=== PATIENT | male | born 1970 | race African-American/Black ===

== ENCOUNTER 2016-11-14 12:25 | Inpatient (IN) | payer MEDICAID ==
[~2016-11-14] VITALS: Ht 175.3 cm; Wt 87.5 kg
[2016-11-14] MEDS ORDERED: CARV3.122 PO (12:48)
[2016-11-14] MEDS ORDERED: FURO40TA5 PO (12:48)
[2016-11-14] MEDS ORDERED: GLIP5TAB13 PO (12:49)
[2016-11-14] MEDS ORDERED: HYDR-4075 PO (12:56)
[2016-11-14] MEDS ORDERED: ASPI-612 PO (12:56)
[2016-11-14] MEDS ORDERED: LOSA25TA13 PO (12:56)
[2016-11-14] MEDS ORDERED: INSU100I19 SQ (12:56)
[2016-11-14] MEDS ORDERED: SIMV20TA6 PO (12:56)
[2016-11-14 13:00] VITALS: BP 128/95
[2016-11-14] MEDS ORDERED: INSULIN REGULAR, HUMAN 300 UNITS/3 ML VIAL SQ PRN (14:45)
[2016-11-14] MEDS ORDERED: DEXTROSE 50% 50 ML DISP.SYRIN IV PRN (14:45)
[2016-11-14] MEDS ORDERED: INSULIN REGULAR, HUMAN 300 UNIT/3 ML VIAL SQ PRN (14:45)
[2016-11-14] MEDS: CARVEDILOL 3.125 MG TABLET PO SCH (17:12)
[2016-11-14] MEDS: BLOOD SUGAR DIAGNOSTIC 1 EACH STRIP VI SCH ×2 (17:43→23:12)
--- NOTE | 2016-11-14 19:45 | NUR ---
Received patient resting on his bed with no s/s of distress. No complaints of pain at this time. Call light within reach, encouraged to call for assistance for any need. Assured of frequent visits from RN throughout the shift. Will continue to monitor.
[2016-11-14] MEDS: SIMVASTATIN 20 MG TABLET PO SCH (21:32)
[2016-11-14] MEDS ORDERED: INSULIN DETEMIR 300 UNIT/3 ML CARTRIDGE SQ ONE (22:28)
[2016-11-14] MEDS: INSULIN DETEMIR 300 UNIT/3 ML CARTRIDGE SQ SCH (23:12)
--- NOTE | 2016-11-15 07:31 | NUR ---
Patient still asleep. No s/s of distress. No complaints of pain. Kept comfortable, needs attended. BS monitored, due meds given. Call light kept within reach. Frequent checks done to ensure safety. Health educ done. Endorsed accordingly.
[2016-11-15] MEDS: BLOOD SUGAR DIAGNOSTIC 1 EACH STRIP VI SCH ×4 (07:58→20:55)
[2016-11-15] MEDS: glipiZIDE 5 MG TABLET PO SCH (08:00)
--- NOTE | 2016-11-15 08:40 | NUR ---
RECEIVED REPORT FROM BRUSH FABRICATION SUPERVISOR. NO SIGNS OF DISTRESS. NO COMPLAINTS OF PAIN. CALL LIGHT WITHIN REACH. NEEDS ATTENDED TO. FREQUENT CHECKS DONE.
[2016-11-15] MEDS: ASPIRIN 325 MG TABLET PO SCH (08:55)
[2016-11-15] MEDS: CARVEDILOL 3.125 MG TABLET PO SCH ×2 (08:55→16:21)
[2016-11-15] MEDS: FUROSEMIDE 40 MG TABLET PO SCH (08:57)
[2016-11-15] MEDS: LOSARTAN POTASSIUM 25 MG TABLET PO SCH (08:57)
[2016-11-15 12:16] VITALS: BP 153/106
[2016-11-15] MEDS ORDERED: DEXTROSE 50% 50 ML DISP.SYRIN IV PRN (14:00)
[2016-11-15 15:35] LABS: EOSINOPHILS # (AUTO) 0.1 K/uL (0.0-0.7); EOSINOPHILS % (AUTO) 1.5 % (0.0-7.0); HEMATOCRIT 40.5 % (36.7-47.1); HEMOGLOBIN 13.2 g/dL (12.5-16.3); LYMPHOCYTES # (AUTO) 1.5 K/uL (20.0-40.0); LYMPHOCYTES % (AUTO) 18.5 % (20.5-51.5); MEAN CORPUSCULAR HEMOGLOBIN 30.8 uug (23.8-33.4); MEAN CORPUSCULAR HGB CONC 33 g/dL (32.5-36.3); MEAN CORPUSCULAR VOLUME 94.2 fL (73.0-96.2); MONOCYTES # (AUTO) 0.7 K/uL (2.0-10.0); MONOCYTES % (AUTO) 9.3 % (0.0-11.0); NEUTROPHILS # (AUTO) 5.6 K/uL (1.8-8.9); NEUTROPHILS % (AUTO) 70.7 % (38.5-71.5); PLATELET COUNT (AUTO) 124 K/uL (152-348); RED CELL DISTRIBUTION WIDTH 14.2 % (12.1-16.2); WHITE BLOOD COUNT (AUTO) 7.9 K/uL (3.6-10.2)
[2016-11-15 16:00] VITALS: BP 159/110
--- NOTE | 2016-11-15 17:30 | NUR ---
PATIENT AWAKE. NO S/S OF DISTRESS. NO COMPLAINTS OF PAIN OR OTHER DISCOMFORTS. ACCU CHECK DONE, READ 192, HUMULIN R 40 UNITS GIVEN. BP OF 163/11. PRN MEDS GIVEN. NO OTHER UNTOWARD S/S OR COMPLAINTS NOTED. ENSURED SAFETY. NEEDS ATTENDED TO
[2016-11-15] MEDS: INSULIN REGULAR, HUMAN 300 UNIT/3 ML VIAL SQ PRN ×2 (17:50→21:08)
[2016-11-15] MEDS: hydrALAZINE HCL 10 MG TABLET PO PRN (18:05)
--- NOTE | 2016-11-15 19:42 | NUR ---
BP OF 155/105. PATIENT AWAKE AND ORIENTED. REPORT GIVEN TO SUBSCRIPTION AGENT
[2016-11-15] MEDS: SIMVASTATIN 20 MG TABLET PO SCH (20:52)
[2016-11-15] MEDS: INSULIN DETEMIR 300 UNIT/3 ML CARTRIDGE SQ SCH (21:02)
--- NOTE | 2016-11-16 06:00 | NUR ---
Patient alert and oriented, verbally able to let needs known. Had no c/o pain or discomfort throughout the night, slept well all night. Is ambulatory and has BRP. Patient does have call light within reach. All needs attended, will continue to monitor.
[2016-11-16 06:43] LABS: ALBUMIN 2.8 g/dL (3.4-5.0); BILIRUBIN,TOTAL 1.3 mg/dL (0.2-1.0); CALCIUM 8.5 mg/dL (8.5-10.1); POTASSIUM 3.3 mmol/L (3.5-5.1); TOTAL PROTEIN, SERUM 6.6 g/dL (6.4-8.2)
[2016-11-16] MEDS: BLOOD SUGAR DIAGNOSTIC 1 EACH STRIP VI SCH ×4 (06:58→21:14)
--- NOTE | 2016-11-16 07:00 | NUR ---
Received critical lab levels for patient BS 44. Dr Saxena was notified regarding situation and he advised us to call Dr Serrato. Dr Serrato was called and verbalized that he's been off for the past several days and to notify the appropriate MD. BS has been rechecked with BS level 37 at 0706, and BS levels 53 at 727. Alcorn juice provided, patient alert and oriented and verbally able to let needs known, currently sitting up in chair and verbalizes no discomfort or dizziness. Will continue to monitor. Reported to oncoming nurse.
--- NOTE | 2016-11-16 07:30 | NUR ---
Patient received from overnight babysitter, sitting comfortably in chair next to bed. No signs of acute distress noted. VS WNL on RA, no complaints of pain noted. No other verbalized needs at this time. Morning blood sugar check by night nurse 38, lab reported blood sugar of 44. No signs of hypoglycemia noted, AAOx4. Dewey juice with added sugar given. Will recheck sugar. Safety and fall precautions maintained, call light within reach.
--- NOTE | 2016-11-16 07:36 | NUR ---
BS rechecked with results reading 90, oncoming nurse informed
[2016-11-16 08:00] VITALS: BP 130/94
[2016-11-16] MEDS: ASPIRIN 325 MG TABLET PO SCH (08:32)
[2016-11-16] MEDS: CARVEDILOL 3.125 MG TABLET PO SCH ×2 (08:33→17:03)
[2016-11-16] MEDS: FUROSEMIDE 40 MG TABLET PO SCH (08:34)
[2016-11-16] MEDS: LOSARTAN POTASSIUM 25 MG TABLET PO SCH (08:34)
[2016-11-16] MEDS: glipiZIDE 5 MG TABLET PO SCH (08:57)
--- NOTE | 2016-11-16 10:00 | NUR ---
Blood sugar rechecked, result 146. No signs of distress noted, oral hypoglycemic agent given as per ordered. No other verbalized needs at this time.
[2016-11-16] MEDS ORDERED: POTASSIUM CHLORIDE 20 MEQ TAB.PRT.SR PO ONE (12:00)
[2016-11-16] MEDS: INSULIN REGULAR, HUMAN 300 UNIT/3 ML VIAL SQ PRN (12:03)
[2016-11-16 19:41] VITALS: BP 136/95
[2016-11-16] MEDS: SIMVASTATIN 20 MG TABLET PO SCH (21:13)
[2016-11-16] MEDS: INSULIN DETEMIR 300 UNIT/3 ML CARTRIDGE SQ SCH (21:19)
[2016-11-16] MEDS: INSULIN REGULAR, HUMAN 300 UNITS/3 ML VIAL SQ PRN (21:36)
[2016-11-17 03:35] VITALS: BP 120/83
[2016-11-17] MEDS: glipiZIDE 5 MG TABLET PO SCH (06:39)
[2016-11-17] MEDS: BLOOD SUGAR DIAGNOSTIC 1 EACH STRIP VI SCH ×4 (06:39→21:10)
--- NOTE | 2016-11-17 06:41 | NUR ---
Patient alert and oriented, verbally able to let needs known. Slept well throughout the night. Had no c/o pain or discomfort, no SOB or distress noted. Patient has call light within reach, all needs attended to.
[2016-11-17 07:32] LABS: CALCIUM 8.4 mg/dL (8.5-10.1); POTASSIUM 3.8 mmol/L (3.5-5.1)
[2016-11-17 08:00] VITALS: BP 118/57
[2016-11-17] MEDS: ASPIRIN 325 MG TABLET PO SCH (10:44)
[2016-11-17] MEDS: CARVEDILOL 3.125 MG TABLET PO SCH ×2 (10:48→17:18)
[2016-11-17] MEDS: LOSARTAN POTASSIUM 25 MG TABLET PO SCH (10:49)
[2016-11-17] MEDS: FUROSEMIDE 40 MG TABLET PO SCH (10:49)
--- NOTE | 2016-11-17 14:58 | NUR ---
DAILY NURSING NOTE UP OOB X2 AMBULATING WITH THERAPY MAGDY WELL. B/P THIS AM 148/105. STABLE LAST READING 118/57 THIS AFTERNOON. NO C/O DISTRESS. AFTERNOON BS 78. ENCOURAGE HIM TO EAT SHE SAID HE WOULD.
[2016-11-17] MEDS: INSULIN REGULAR, HUMAN 300 UNIT/3 ML VIAL SQ PRN (18:17)
[2016-11-17] MEDS: SIMVASTATIN 20 MG TABLET PO SCH (21:09)
[2016-11-17] MEDS: INSULIN DETEMIR 300 UNIT/3 ML CARTRIDGE SQ SCH (21:13)
[2016-11-18] MEDS: glipiZIDE 5 MG TABLET PO SCH (06:44)
[2016-11-18] MEDS: BLOOD SUGAR DIAGNOSTIC 1 EACH STRIP VI SCH ×4 (06:44→21:54)
--- NOTE | 2016-11-18 06:51 | NUR ---
Patient slept well through out the night, had no complains of pain or discomfort. Verbally able to let needs known. Call light within reach all needs attended to.
[2016-11-18 07:58] VITALS: BP 125/63
[2016-11-18 08:03] VITALS: BP 125/63
[2016-11-18 08:07] VITALS: BP 143/96
[2016-11-18] MEDS: FUROSEMIDE 40 MG TABLET PO SCH (08:51)
[2016-11-18] MEDS: ASPIRIN 325 MG TABLET PO SCH (08:51)
[2016-11-18] MEDS: LOSARTAN POTASSIUM 25 MG TABLET PO SCH (08:52)
[2016-11-18] MEDS: CARVEDILOL 3.125 MG TABLET PO SCH ×2 (08:53→18:37)
--- NOTE | 2016-11-18 19:20 | NUR ---
nsg: pt received asleep, arousable. no acute distress noted. denies discomfort. bed alarm on. call light within reach.
[2016-11-18 19:45] VITALS: BP 132/62
[2016-11-18] MEDS: SIMVASTATIN 20 MG TABLET PO SCH (21:16)
[2016-11-18] MEDS: INSULIN DETEMIR 300 UNIT/3 ML CARTRIDGE SQ SCH (21:20)
[2016-11-18] MEDS: INSULIN REGULAR, HUMAN 300 UNITS/3 ML VIAL SQ PRN (21:22)
--- NOTE | 2016-11-18 23:50 | NUR ---
nsg: pt up, sitting on the chair. denies discomfort.
--- NOTE | 2016-11-19 04:15 | NUR ---
nsg: while doing hourly rounding, pt is awake, c/o shortness of breathe on exertion, and cough out clear sputum. pt assisted to sit on the chair per request. lungs sounds equally clear bilaterally. O2 sat on RA is sustaining 96%. pt feels better after sitting on the chair. cont to monitor.
--- NOTE | 2016-11-19 06:00 | NUR ---
nsg: pt awake, comfortable in bed. no acute distress noted. denies shortness of breathe. cont to monitor.
[2016-11-19] MEDS: BLOOD SUGAR DIAGNOSTIC 1 EACH STRIP VI SCH ×4 (06:35→21:00)
--- NOTE | 2016-11-19 07:05 | NUR ---
Patient received from material handler 2nd shift, comfortable up in chair, no signs of acute distress noted. No verbalized needs at this time. No complaints of pain. VS WNL, BS 108 per night nurse. Safety precautions and fall precautions maintained. Call light within reach.
[2016-11-19 08:04] VITALS: BP 153/111
[2016-11-19] MEDS: glipiZIDE 5 MG TABLET PO SCH (08:25)
[2016-11-19] MEDS: FUROSEMIDE 40 MG TABLET PO SCH (08:25)
[2016-11-19] MEDS: LOSARTAN POTASSIUM 25 MG TABLET PO SCH (08:25)
[2016-11-19] MEDS: CARVEDILOL 3.125 MG TABLET PO SCH ×2 (08:25→17:21)
[2016-11-19] MEDS: ASPIRIN 325 MG TABLET PO SCH (08:26)
[2016-11-19] MEDS ORDERED: IPRATROPIUM BROMIDE 0.5 MG/2.5 ML NEBU NEB PRN (13:00)
[2016-11-19] MEDS ORDERED: ALBUTEROL SULFATE 2.5 MG/3 ML NEBU NEB PRN (13:00)
[2016-11-19] MEDS ORDERED: GUAIFENESIN/CODEINE 5 ML LIQUID UDC PO PRN (13:00)
[2016-11-19] MEDS: LEVOFLOXACIN 750 MG TABLET PO SCH (13:44)
[2016-11-19] MEDS: hydrALAZINE HCL 10 MG TABLET PO PRN (17:21)
--- NOTE | 2016-11-19 19:45 | NUR ---
Received patient sleeping with no s/s of distress noted. Call light within reach. Will continue to monitor.
[2016-11-19] MEDS: SIMVASTATIN 20 MG TABLET PO SCH (20:27)
[2016-11-19] MEDS: INSULIN DETEMIR 300 UNIT/3 ML CARTRIDGE SQ SCH (21:00)
[2016-11-20] MEDS: INSULIN REGULAR, HUMAN 300 UNITS/3 ML VIAL SQ PRN ×2 (00:13→20:45)
[2016-11-20] MEDS: hydrALAZINE HCL 10 MG TABLET PO PRN (00:18)
--- NOTE | 2016-11-20 00:31 | NUR ---
BP 162/100. Hydralazine given as ordered. Patient verbalized absence of pain and discomfort at this time, saying "I'm good, I don't feel anything out of the ordinary." Midnight snacks offered and served as requested. Blood sugar likewise being monitored. Decreased from 253 to 217 after interventions. Will reasses and continue to monitor.
--- NOTE | 2016-11-20 01:00 | NUR ---
Patient's Blood Sugar level at 65. Gave orange juice and encourage to finish lunch. Informed Dr. Beaulieu Addendum: 11/20/16 at 1925 by BRET WHITFIELD RN Documentation for 12:45. Patient's Blood Sugar level at 65. Gave orange juice and encourage to finish lunch. Informed Dr. Beaulieu
[2016-11-20 05:53] VITALS: BP 156/100
--- NOTE | 2016-11-20 06:43 | NUR ---
Patient resting on his chair with no s/s of distress. No complaints of pain at this time. BP and blood sugar monitored during shift. Latest BS taken at 5:45AM-98. Health education given. Verbalized understanding and overall feeling of being wellness. Stated, "I'm fine, I'm feeling good." Desirable decrease in SBP noted after medical intervention and ample amount of sleep. Patient verbalized feeling rested upon waking up. Snacks offered while waiting for breakfast; refused, saying he could wait and preferred to go back to bed. Needs attended. Frequent checks done. Supervised during bathroom trips. Call light kept within reach. Endorsed accordingly.
--- NOTE | 2016-11-20 08:00 | NUR ---
Received patient asleep in bed with no signs of distress. Call light within reach. Will continue to monitor
[2016-11-20 08:12] LABS: CALCIUM 8.6 mg/dL (8.5-10.1); CARBON DIOXIDE 31 mmol/L (21-32); CHLORIDE 103 mmol/L (98-107); CREATININE 0.7 mg/dL (0.6-1.3); GFR > 130 mL/min (>60); GLUCOSE 91 mg/dL (74-106); POTASSIUM 3.7 mmol/L (3.5-5.1); SODIUM SERUM 141 mmol/L (136-145); UREA NITROGEN, BLOOD 10 mg/dL (7-18)
[2016-11-20] MEDS: BLOOD SUGAR DIAGNOSTIC 1 EACH STRIP VI SCH ×4 (08:12→20:46)
[2016-11-20 08:24] LABS: BASOPHILS % (AUTO) 0.7 % (0.0-2.0); EOSINOPHILS # (AUTO) 0.1 K/uL (0.0-0.7); EOSINOPHILS % (AUTO) 1.7 % (0.0-7.0); MEAN CORPUSCULAR HEMOGLOBIN 32.1 uug (23.8-33.4); MEAN CORPUSCULAR HGB CONC 34 g/dL (32.5-36.3); MEAN CORPUSCULAR VOLUME 93.8 fL (73.0-96.2); MONOCYTES # (AUTO) 0.7 K/uL (2.0-10.0); MONOCYTES % (AUTO) 10.4 % (0.0-11.0); NEUTROPHILS % (AUTO) 58.2 % (38.5-71.5); PLATELET COUNT (AUTO) 110 K/uL (152-348); RED BLOOD CELL COUNT(AUTO) 4.05 MIL/uL (4.06-5.63); RED CELL DISTRIBUTION WIDTH 14.5 % (12.1-16.2); WHITE BLOOD COUNT (AUTO) 6.8 K/uL (3.6-10.2)
[2016-11-20] MEDS: ASPIRIN 325 MG TABLET PO SCH (08:25)
[2016-11-20] MEDS: glipiZIDE 5 MG TABLET PO SCH (08:25)
[2016-11-20] MEDS: FUROSEMIDE 40 MG TABLET PO SCH (08:31)
[2016-11-20] MEDS: CARVEDILOL 3.125 MG TABLET PO SCH ×2 (08:31→17:35)
[2016-11-20] MEDS ORDERED: LOSARTAN POTASSIUM 50 MG TABLET PO SCH (09:00)
[2016-11-20] MEDS ORDERED: LOSARTAN POTASSIUM 25 MG TABLET PO SCH (09:00)
--- NOTE | 2016-11-20 10:00 | NUR ---
Patient awake, alert and oriented. No complaints of pain or discomfort at this time. Blood pressure, vital signs and blood sugar monitored. Medications given.
[2016-11-20] MEDS: LEVOFLOXACIN 750 MG TABLET PO SCH (12:47)
--- NOTE | 2016-11-20 13:10 | NUR ---
Blood sugar level re-checked at 119. BP monitored and KS at 117. Informed Dr. Madrigal about changes in Pulse Rate. New orders acknowledged and relayed to third shift lieutenant.
--- NOTE | 2016-11-20 15:12 | NUR ---
BP of 149/113. Notified Dr. Beaulieu of BP. New order of Losartan dose noted and acknowledged.
[2016-11-20] MEDS ORDERED: LEVALBUTEROL HCL 1.25 MG/0.5 ML NEB NEB PRN (19:15)
--- NOTE | 2016-11-20 19:30 | NUR ---
Received patient awake, lying in bed. Verbalized absence of pain at this time. Call light within reach. Encouraged to call for assistance whenever necessary. Assured of constant checks/monitoring during the shift.
[2016-11-20] MEDS: SIMVASTATIN 20 MG TABLET PO SCH (20:46)
[2016-11-20] MEDS: INSULIN DETEMIR 300 UNIT/3 ML CARTRIDGE SQ SCH (21:26)
--- NOTE | 2016-11-20 21:45 | NUR ---
Stat EKG ordered by Dr. Beaulieu to obtain possible cause of increased HR. Latest VS taken 143/100. Dr. Beaulieu made aware. Addendum: 11/20/16 at 2259 by ART SOUZA RN Latest VS taken 143/100, HR 115. Dr. Beaulieu made aware. Stat EKG ordered by Dr. Beaulieu to obtain possible cause of increased HR.
[2016-11-20] MEDS ORDERED: METOPROLOL TARTRATE 50 MG TABLET PO ONE (22:30)
--- NOTE | 2016-11-20 22:30 | NUR ---
EKG results in, Dr. Beaulieu made aware. Latest HR 110 bpm. New orders given for Metoprolol 50mg PO now (administered) and Metoprolol 25mg BID. Pennie likewise made aware. Expressed appreciation for the information/update. Patient verbalizes overall feeling of comfort, denies any pain at this time. Will continue to monitor patient.
[2016-11-20 23:57] VITALS: BP 136/100
--- NOTE | 2016-11-21 06:40 | NUR ---
Patient still sleeping with no s/s of distress. Due meds given, V/S and blood sugar monitored during shift. Frequent checks done. Supervised during ambulation. Snacks given twice during shift, per patient's request. Call light kept within reach. Comfort and safety measures observed. Needs attended. Endorsed accordingly.
--- NOTE | 2016-11-21 07:38 | NUR ---
Received patient up in bed watching TV, alert, verbally responsive, coherent, not in acute distress. Denies any pain or discomfort. No noted coughing. Assisted to his needs. Call light placed within reach.
[2016-11-21] MEDS: BLOOD SUGAR DIAGNOSTIC 1 EACH STRIP VI SCH ×4 (08:15→21:32)
[2016-11-21] MEDS: INSULIN REGULAR, HUMAN 300 UNIT/3 ML VIAL SQ PRN ×2 (08:15→12:41)
[2016-11-21] MEDS: glipiZIDE 5 MG TABLET PO SCH (08:16)
[2016-11-21] MEDS: ASPIRIN 325 MG TABLET PO SCH (08:16)
[2016-11-21] MEDS: FUROSEMIDE 40 MG TABLET PO SCH (08:17)
[2016-11-21] MEDS: CARVEDILOL 3.125 MG TABLET PO SCH (08:17)
[2016-11-21] MEDS: LOSARTAN POTASSIUM 50 MG TABLET PO SCH (08:18)
[2016-11-21] MEDS ORDERED: METOPROLOL TARTRATE 25 MG TABLET PO SCH (09:00)
[2016-11-21] MEDS ORDERED: CARVEDILOL 3.125 MG TABLET PO ONE (09:45)
[2016-11-21] MEDS: LEVOFLOXACIN 750 MG TABLET PO SCH (12:47)
[2016-11-21 14:30] VITALS: BP 134/94
--- NOTE | 2016-11-21 14:30 | NUR ---
1100 Notified Eboni PROGRAM PROPOSALS COORDINATOR for Dr. Serrato regarding ECG result from last night and stated will order cardiology consult and said that its ok to go for therapy if vitals signs are stable. Patient and [id number] who is at bedside made aware and agreeable.
[2016-11-21] MEDS: CLOTRIMAZOLE/BETAMET DIPROP CREAM 15 GM TUBE TOP SCH ×2 (16:08→21:02)
--- NOTE | 2016-11-21 16:30 | NUR ---
Patient seen and examined by Eboni HIGH PRESSURE BOILER OPERATOR for Dr. Serrato and noted patient with rash on BLE with order to do skin scraping for scabies. And to put patient on isolation pending result. Patient denies any itching or other discomfort and that he just noticed it today. No complain of pain. Informed patient regarding isolation protocol and he verbalized understanding.
[2016-11-21] MEDS: CARVEDILOL 6.25 MG TABLET PO SCH (17:49)
[2016-11-21 18:00] VITALS: BP 138/104
--- NOTE | 2016-11-21 18:30 | NUR ---
Patient vomited 1x previously ingested food. Patient alert, coherent and verbally responsive. Vital signs as follows, BP-150/105, IA-90, RR-21, O2 Sat at 98%. Abdomen soft and non-tender with normo active bowel sounds.Last BM today 1x. No other signs and symptoms of distress. No complains of pain or other discomforts. Notified Dr. Serrato with order to give Zofran 4 mg PO q6 PRN.
[2016-11-21] MEDS ORDERED: ONDANSETRON HCL 4 MG TABLET PO PRN (18:45)
[2016-11-21 19:28] VITALS: BP 143/111
--- NOTE | 2016-11-21 19:30 | NUR ---
Received patient sleeping with no s/s of distress. Call light within reach. Will continue to monitor.
[2016-11-21 20:00] VITALS: BP 120/87
--- NOTE | 2016-11-21 20:05 | NUR ---
0 Patient remains alert, verbally responsive, coherent, not in acute distress. He denies any pain or discomfort at this time.
[2016-11-21] MEDS: SIMVASTATIN 20 MG TABLET PO SCH (21:02)
[2016-11-21] MEDS: INSULIN DETEMIR 300 UNIT/3 ML CARTRIDGE SQ SCH (21:12)
[2016-11-21] MEDS: INSULIN REGULAR, HUMAN 300 UNITS/3 ML VIAL SQ PRN (21:13)
--- NOTE | 2016-11-21 22:31 | NUR ---
2000: V/S taken 120/87, 85, 98F, 18, 96%. Will continue to monitor 2030: BS 250. Humulin R dose given per sliding scale Assessed for the ff s/s of stroke, all NEGATIVE: facial drooping, arm weakness, speech difficulty, chest pain, numbness, sweating, blurry vision, dizziness, walking imbalance. Encouraged to call for assistance for any need. Assured of frequent checks throughout shift. Verbalized feeling good, and not feeling "anything out of the ordinary".
--- NOTE | 2016-11-21 22:39 | NUR ---
Requested for snacks at 1900, consumed 100%. Denies any feeling of nausea or another episode of vomiting. Reports feeling good. Requested to be brought some snacks at midnight.
--- NOTE | 2016-11-22 06:37 | NUR ---
Patient sleeping with no s/s of distress. No complaints of pain throughout the shift. Verbalized feeling great. Consumed snacks. Kept comfortable. Frequent checks done. Call light kept within reach. VS and blood sugar monitored. Due meds given. Needs attended. Supervised during ambulation. Endorsed accordingly.
[2016-11-22 08:11] VITALS: BP 132/105
[2016-11-22] MEDS ORDERED: APIXABAN 5 MG TABLET PO SCH (09:00)
[2016-11-22] MEDS: LOSARTAN POTASSIUM 50 MG TABLET PO SCH (09:21)
[2016-11-22] MEDS: FUROSEMIDE 40 MG TABLET PO SCH (09:21)
[2016-11-22] MEDS: CARVEDILOL 6.25 MG TABLET PO SCH ×2 (09:22→17:57)
[2016-11-22] MEDS: glipiZIDE 5 MG TABLET PO SCH (09:22)
[2016-11-22] MEDS: BLOOD SUGAR DIAGNOSTIC 1 EACH STRIP VI SCH ×4 (09:23→20:32)
[2016-11-22] MEDS: APIXABAN 5 MG TABLET PO SCH ×2 (09:23→17:53)
[2016-11-22] MEDS: CLOTRIMAZOLE/BETAMET DIPROP CREAM 15 GM TUBE TOP SCH ×2 (09:24→20:36)
[2016-11-22] MEDS: INSULIN REGULAR, HUMAN 300 UNIT/3 ML VIAL SQ PRN ×2 (09:36→12:18)
[2016-11-22] MEDS ORDERED: CARVEDILOL 6.25 MG TABLET PO ONE (10:15)
[2016-11-22] MEDS: AMIODARONE HCL 200 MG TABLET PO SCH ×2 (12:14→20:32)
[2016-11-22] MEDS ORDERED: CLONIDINE HCL 0.1 MG TABLET PO PRN (13:00)
[2016-11-22] MEDS: LEVOFLOXACIN 750 MG TABLET PO SCH (13:06)
--- NOTE | 2016-11-22 15:00 | NUR ---
IDT MEETING 11/22/16
[2016-11-22 15:52] VITALS: BP 121/88
--- NOTE | 2016-11-22 19:51 | NUR ---
[address] Serrato regarding skin scraping result and ordered to take patient off isolation. Patient made aware of result and to be off isolation.
[2016-11-22] MEDS: SIMVASTATIN 20 MG TABLET PO SCH (20:32)
[2016-11-22] MEDS: INSULIN REGULAR, HUMAN 300 UNITS/3 ML VIAL SQ PRN (20:34)
[2016-11-22] MEDS: INSULIN DETEMIR 300 UNIT/3 ML CARTRIDGE SQ SCH (20:35)
[2016-11-22 20:41] VITALS: BP 140/104
--- NOTE | 2016-11-23 05:30 | NUR ---
Patient slept well through out the night. Had no complains of pain or discomfort. Had no episodes or respiratory discomfort. Snacks were provided at night, ambulatory to restroom. Patient has call light within reach, all needs attended to.
[2016-11-23] MEDS: BLOOD SUGAR DIAGNOSTIC 1 EACH STRIP VI SCH ×4 (06:40→20:59)
[2016-11-23] MEDS: glipiZIDE 5 MG TABLET PO SCH (06:40)
[2016-11-23 06:55] LABS: BASOPHILS # (AUTO) 0.1 K/uL (0.0-8.0); EOSINOPHILS # (AUTO) 0.1 K/uL (0.0-0.7); EOSINOPHILS % (AUTO) 2.2 % (0.0-7.0); HEMATOCRIT 36.9 % (40-50); HEMOGLOBIN 12.5 G/DL (14.0-18.0); LYMPHOCYTES # (AUTO) 2.1 K/uL (20.0-40.0); LYMPHOCYTES % (AUTO) 34.9 % (20.5-51.5); MEAN CORPUSCULAR HEMOGLOBIN 31.7 UUG (27.0-31.0); MEAN CORPUSCULAR HGB CONC 34 g/dL (32.0-37.0); MEAN CORPUSCULAR VOLUME 93.9 FL (82.0-92.0); MONOCYTES # (AUTO) 0.5 K/uL (2.0-10.0); MONOCYTES % (AUTO) 8.9 % (0.0-11.0); NEUTROPHILS # (AUTO) 3.2 K/uL (1.8-8.9); PLATELET COUNT (AUTO) 135 K/UL (150-450); RED BLOOD CELL COUNT(AUTO) 3.94 MIL/UL (4.7-6.1); RED CELL DISTRIBUTION WIDTH 14.1 % (11.5-14.5)
[2016-11-23 07:17] LABS: ALBUMIN 2.8 g/dL (3.4-5.0); BILIRUBIN,TOTAL 0.8 mg/dL (0.2-1.0); CALCIUM 8.5 mg/dL (8.5-10.1); CREATININE 1.1 mg/dL (0.6-1.3); PHOSPHOROUS 4.6 mg/dL (2.5-4.9); POTASSIUM 4.2 mmol/L (3.5-5.1); TOTAL PROTEIN, SERUM 6.4 g/dL (6.4-8.2)
[2016-11-23 07:22] LABS: THYROID STIMULATING HORMONE 8.317 mIU/mL (0.358-3.740)
[2016-11-23 07:25] LABS: MAGNESIUM 1.7 mg/dL (1.8-2.4)
[2016-11-23] MEDS ORDERED: ALBUTEROL SULFATE 2.5 MG/ 0.5 ML NEBU NEB PRN (08:00)
[2016-11-23 08:29] VITALS: BP 149/113
[2016-11-23] MEDS: CARVEDILOL 6.25 MG TABLET PO SCH ×2 (08:34→17:30)
[2016-11-23] MEDS: LOSARTAN POTASSIUM 50 MG TABLET PO SCH (08:35)
[2016-11-23] MEDS: AMIODARONE HCL 200 MG TABLET PO SCH ×2 (08:36→21:00)
[2016-11-23] MEDS: FUROSEMIDE 40 MG TABLET PO SCH (08:36)
[2016-11-23] MEDS: APIXABAN 5 MG TABLET PO SCH ×2 (08:37→17:30)
[2016-11-23] MEDS: INSULIN REGULAR, HUMAN 300 UNIT/3 ML VIAL SQ PRN ×2 (08:42→11:28)
[2016-11-23] MEDS: CLOTRIMAZOLE/BETAMET DIPROP CREAM 15 GM TUBE TOP SCH ×2 (08:52→21:00)
[2016-11-23] MEDS ORDERED: MAGNESIUM OXIDE 400 MG TABLET PO ONE (11:00)
[2016-11-23] MEDS: LEVOTHYROXINE SODIUM 25 MCG TABLET PO SCH (11:04)
[2016-11-23] MEDS: AMLODIPINE 5 MG TABLET PO SCH (11:28)
[2016-11-23] MEDS: LEVOFLOXACIN 750 MG TABLET PO SCH (13:16)
[2016-11-23] MEDS: INSULIN REGULAR, HUMAN 300 UNITS/3 ML VIAL SQ PRN ×2 (17:33→21:10)
[2016-11-23] MEDS: SIMVASTATIN 20 MG TABLET PO SCH (21:00)
[2016-11-23] MEDS: INSULIN DETEMIR 300 UNIT/3 ML CARTRIDGE SQ SCH (21:08)
[2016-11-23 21:18] VITALS: BP 129/96
--- NOTE | 2016-11-24 05:35 | NUR ---
Patient alert and oriented, verbally able to let needs known. Had no c/o pain or discomfort, all needs attended to.
[2016-11-24] MEDS: LEVOTHYROXINE SODIUM 25 MCG TABLET PO SCH (06:52)
[2016-11-24] MEDS: glipiZIDE 5 MG TABLET PO SCH (06:52)
[2016-11-24] MEDS: BLOOD SUGAR DIAGNOSTIC 1 EACH STRIP VI SCH ×2 (06:55→11:55)
[2016-11-24 07:47] VITALS: BP 135/95
[2016-11-24] MEDS: CARVEDILOL 6.25 MG TABLET PO SCH (10:00)
[2016-11-24] MEDS: AMLODIPINE 5 MG TABLET PO SCH (10:01)
[2016-11-24] MEDS: hydrALAZINE HCL 10 MG TABLET PO PRN (10:01)
[2016-11-24] MEDS: FUROSEMIDE 40 MG TABLET PO SCH (10:02)
[2016-11-24] MEDS: AMIODARONE HCL 200 MG TABLET PO SCH (10:03)
[2016-11-24] MEDS: LOSARTAN POTASSIUM 50 MG TABLET PO SCH (10:03)
[2016-11-24] MEDS: CLOTRIMAZOLE/BETAMET DIPROP CREAM 15 GM TUBE TOP SCH (10:05)
[2016-11-24] MEDS: APIXABAN 5 MG TABLET PO SCH (10:05)
[2016-11-24] MEDS: LEVOFLOXACIN 750 MG TABLET PO SCH (12:11)
[2016-11-24] MEDS: INSULIN REGULAR, HUMAN 300 UNIT/3 ML VIAL SQ PRN (12:13)
[2016-11-24] MEDS ORDERED: AMLO5TAB4 PO ×2 (13:25→13:26)
--- NOTE | 2016-11-24 17:20 | NUR ---
D/C NOTE PT LEFT THE UNIT 1720 WITH D/C INSTRUCTIONS AND MEDS. D/C LEVEMIR HAD TO BE CHANGED TO LANTUS. ELIQUIS HAD TO BE CHANGED TO PRADAXIA 150MG PO BID DUE TO INSURANCE COVERAGE. SPOKE WITH MD MARKS AND MD PRESTON TO APPROVE CHANGES. PT WHEELED TO CAR IN W/C. WITH AND MOTHER IN LAW. BS 122. B/P 129/91-71-18. 98% ROOM AIR SAT. EDUCATION GIVEN ON HOW TO TAKE BLOOD SUGARS AND SLIDING SCALE INFO GIVEN
[2016-11-24 17:30] VITALS: BP 122/91
[2016-11-24 17:57] VITALS: BP 122/91
== END 2016-11-24 18:00 | disposition home health service (06) | DRG 45 ==
PROVIDERS: ADMIT Physical Medicine & Rehabilitation Pain Medicine; ATTEND Physical Medicine & Rehabilitation Pain Medicine
DX: I63.40 Cerebral infarction due to embolism of unspecified cerebral artery (principal); I21.4 Non-ST elevation (NSTEMI) myocardial infarction; I50.23 Acute on chronic systolic (congestive) heart failure; J15.9 Unspecified bacterial pneumonia; D68.59 Other primary thrombophilia; E11.649 Type 2 diabetes mellitus with hypoglycemia without coma; I11.0 Hypertensive heart disease with heart failure; E11.65 Type 2 diabetes mellitus with hyperglycemia; E44.1 Mild protein-calorie malnutrition; I48.92 Unspecified atrial flutter; R53.1 Weakness; Z82.49 Family history of ischemic heart disease and other diseases of the circulatory system; I25.5 Ischemic cardiomyopathy; I48.91 Unspecified atrial fibrillation; E78.5 Hyperlipidemia, unspecified; E66.9 Obesity, unspecified; Z68.28 Body mass index [BMI] 28.0-28.9, adult; E87.6 Hypokalemia; D69.6 Thrombocytopenia, unspecified; R20.0 Anesthesia of skin; L30.9 Dermatitis, unspecified; D53.9 Nutritional anemia, unspecified
CPT/HCPCS: 36415; 70030-TC; 71020; 83735; 84100; 84443; 85025; 92506; 92507; 93005; 97001; 97110; 97112; 97116; 97530; 97535; A4663; J1815

== ENCOUNTER 2016-12-05 04:34 | Emergency (ER) | payer MEDICAID ==
[~2016-12-05] VITALS: Ht 175.3 cm; Wt 78.2 kg
[~2016-12-05 04:34] MED LIST: AMLO5TAB4 PO; ASPI-612 PO; CARV3.122 PO; FURO40TA5 PO; GLIP5TAB13 PO; HYDR-4075 PO; INSU100I19 SQ; LOSA25TA13 PO; SIMV20TA6 PO
--- NOTE | 2016-12-05 04:41 | NUR ---
PATIENT BROUGHT IN BY FAMILY MEMBER FOR C/O VISUAL HALLUCINATION THAT STARTED 2HRS AGO. BLOOD SUGAR UPON ARRIVAL 127. PT IS ALERT, ORIENTED X 4, NO RESP DISTRESS NOTED OR REPORTED UPON ASSESSMENT...MD AT BEDSIDE...
[2016-12-05 05:25] LABS: BASOPHILS # (AUTO) 0.1 K/uL (0.0-8.0); BASOPHILS % (AUTO) 0.8 % (0.0-2.0); EOSINOPHILS # (AUTO) 0.1 K/uL (0.0-0.7); EOSINOPHILS % (AUTO) 1.5 % (0.0-7.0); HEMOGLOBIN 15.7 G/DL (14.0-18.0); LYMPHOCYTES % (AUTO) 36.4 % (20.5-51.5); MEAN CORPUSCULAR HEMOGLOBIN 31.9 UUG (27.0-31.0); MEAN CORPUSCULAR HGB CONC 34 g/dL (32.0-37.0); MEAN CORPUSCULAR VOLUME 93.7 FL (82.0-92.0); MONOCYTES # (AUTO) 0.8 K/UL (0.1-1.30); MONOCYTES % (AUTO) 10.2 % (0.0-11.0); NEUTROPHILS # (AUTO) 4.2 K/UL (1.8-8.9); NEUTROPHILS % (AUTO) 51.1 % (38.5-71.5); PLATELET COUNT (AUTO) 239 K/UL (150-450); RED BLOOD CELL COUNT(AUTO) 4.91 MIL/UL (4.7-6.1); RED CELL DISTRIBUTION WIDTH 14.5 % (11.5-14.5); WHITE BLOOD COUNT (AUTO) 8.2 K/UL (4.0-11.2)
[2016-12-05 05:31] LABS: CALCIUM 9.5 mg/dL (8.5-10.1); CREATININE 1.1 mg/dL (0.6-1.3); POTASSIUM 3.2 mmol/L (3.5-5.1)
[2016-12-05 05:37] LABS: ALBUMIN 3.7 g/dL (3.4-5.0); BILIRUBIN,DIRECT 0.3 mg/dL (0.0-0.2); BILIRUBIN,TOTAL 0.9 mg/dL (0.2-1.0); TOTAL PROTEIN, SERUM 7.9 g/dL (6.4-8.2)
[2016-12-05 05:44] LABS: *BILIRUBIN,URIN NEGATIVE (NEGATIVE); *BLOOD, URINE NEGATIVE (NEGATIVE); *CLARITY,URINE CLEAR (CLEAR); *COLOR,URINE YELLOW (YELLOW); *KETONES,URINE NEGATIVE (NEGATIVE); *PROTEIN,URINE NEGATIVE (NEGATIVE); LEUKOCYTE ESTERASE ,URINE NEGATIVE (NEGATIVE); NITRITE, URINE NEGATIVE (NEGATIVE); UGLUCOSE NEGATIVE (NEGATIVE)
[2016-12-05 05:52] LABS: BACTERIA,URINE FEW /HPF (NONE SEEN); RBC,URINE 0-3 /HPF (0-3); SQUAMOUS EPITHELIAL CELL,UR FEW /HPF (NONE SEEN); WBC,URINE 0-3 /HPF (0-3)
--- NOTE | 2016-12-05 06:14 | NUR ---
Patient discharged to home in stable conditon. Written and verbal after care instructions given. Patient verbalizes understanding of instructions. Pt walked out of ER unassisted with belongings and family member at side...
[2016-12-05 06:15] VITALS: BP 137/87
== END 2016-12-05 06:18 | disposition home or self-care (01) ==
LOC: ER 04:36
DX: R44.2 Other hallucinations (principal); I25.10 Atherosclerotic heart disease of native coronary artery without angina pectoris; I10 Essential (primary) hypertension; E11.9 Type 2 diabetes mellitus without complications; E78.5 Hyperlipidemia, unspecified; Z79.4 Long term (current) use of insulin
CPT/HCPCS: 36415; 83690; 85025; 87086; 93005; A4663